=== PATIENT | female | born 1965 | race Caucasian/White ===

== ENCOUNTER 2019-11-01 19:52 | Inpatient (IN) | payer MEDICAID ==
[~2019-11-01] VITALS: Ht 165.1 cm; Wt 72.4 kg
[2019-11-01 21:18] LABS: Basophils # (auto) 0 uL; Basophils % (auto) 0.3 % (0.0-2.0); Eosinophils # (auto) 0.1 uL; Eosinophils % (auto) 0.7 % (0.0-7.0); Hematocrit 45.3 % (36.0-46.0); Hemoglobin 15.5 g/dL (12.2-16.2); Lymphocytes # (auto) 2.4 uL; Mean Corpuscular Hemoglobin 32.5 pg (28.0-32.0); Mean Corpuscular Hgb Conc. 34.2 g/dL (32.0-36.0); Monocytes # (auto) 0.8 uL; Monocytes % (auto) 6.7 % (0.0-12.0); Neutrophils # (auto) 8.6 uL; Neutrophils % (auto) 72.3 % (37.0-80.0); Nucleated Red Blood Cells % 0.1 %; Platelet Count (auto) 278 10^3/uL (140-450); Red Blood Cells 4.77 10^6/uL (4.0-5.20); Red Cell Distribution Width 12.7 % (11.8-14.3); White Blood Cell 11.9 10^3/uL (4.4-10.8)
[2019-11-01 21:23] LABS: Albumin 3.9 g/dL (3.4-5.0); Calcium 8.7 mg/dL (8.5-10.1); Magnesium 2.2 mg/dL (1.6-2.6); Potassium 3.9 mmol/L (3.5-5.1)
[2019-11-01 21:29] LABS: Bilirubin, Total 0.3 mg/dL (0.2-1.0); Total Protein 7.8 g/dL (6.4-8.2)
[2019-11-01] MEDS ORDERED: NITROGLYCERIN 0.4 MG SL TAB SL PRN (22:15)
[2019-11-01] MEDS ORDERED: HYDROcodone-ACET 5/325MG TAB PO PRN (22:15)
[2019-11-01] MEDS ORDERED: METOPROLOL TARTRATE 25 MG TAB PO ONE (22:15)
[2019-11-01] MEDS ORDERED: TEMAZEPAM 15 MG CAP PO PRN (22:15)
[2019-11-01] MEDS ORDERED: MORPHINE SULF INJ 2 MG/ML SYRINGE 1ML IV PRN (22:15)
[2019-11-01] MEDS ORDERED: ENOXAPARIN SOD 100 MG/1 ML SYRINGE SC SCH (22:15)
[2019-11-01] MEDS ORDERED: ONDANSETRON HCL 4 MG/2 ML VIAL IV PRN (22:15)
[2019-11-01] MEDS ORDERED: ATORVASTATIN 20 MG TAB PO ONE (22:15)
[2019-11-01 22:37] LABS: Urine Amorphous Crystal FEW /hpf (None Seen); Urine Bacteria NONE SEEN /hpf (None Seen); Urine Blood 1+ /uL (Negative); Urine Specific Gravity 1.024 (1.001-1.035); Urine WBC 4 /hpf (0 - 5)
[2019-11-01] MEDS: D5W/SOD CHLO 0.9% 1,000 ML IV SCH (23:12)
[2019-11-02] VITALS (8 sets, daily range): BP systolic 112–144; BP diastolic 67–106
[2019-11-02] MEDS ORDERED: ERGO1CAP6 PO (00:34)
--- NOTE | 2019-11-02 00:40 | NUR ---
Telemetry admit from ER KANDIBRYONKarli admitted to Telemetry unit after SBAR received. Patient oriented to Roberto Carlos august RN, unit, room 296, bed A, and unit policies regarding patient care and visiting hours. Patient now on continuous telemetry monitoring, tele box #78 and telemetry reading on arrival to unit is SR 77. Patient placed on bedside oxygen, weighed by bedscale and encouraged to call if they need something. All questions and concerns addressed, patient verbalized understanding.
[2019-11-02] MEDS ORDERED: NICOTINE 21MG/24 HR TOPICAL PATCH TD ONE (01:00)
[2019-11-02 01:10] LABS: Cholesterol 199 mg/dL (< 200)
[2019-11-02 01:13] LABS: HDL Cholesterol 49 mg/dL (40-59); LDL Cholesterol 122 mg/dL (< 100); Triglycerides 119 mg/dL (< 150)
--- NOTE | 2019-11-02 01:42 | NUR ---
Received a call from labs regarding critical Troponins at 0.598. Patient resting and in no distress. Paged hospitalist.
--- NOTE | 2019-11-02 02:43 | NUR ---
Received call from Hospitalist. Confirmed order for Cardiology consult. No other new orders.
[2019-11-02 06:35] LABS: BUN/Creatinine Ratio 18.8; Calcium 8.1 mg/dL (8.5-10.1); Potassium 4.1 mmol/L (3.5-5.1)
[2019-11-02 06:58] LABS: Basophils # (auto) 0 uL; Basophils % (auto) 0.3 % (0.0-2.0); Eosinophils # (auto) 0.1 uL; Eosinophils % (auto) 1.2 % (0.0-7.0); Hematocrit 42.5 % (36.0-46.0); Hemoglobin 14.6 g/dL (12.2-16.2); Lymphocytes % (auto) 45.1 % (10.0-50.0); Mean Corpuscular Hemoglobin 32.3 pg (28.0-32.0); Mean Corpuscular Hgb Conc. 34.2 g/dL (32.0-36.0); Mean Corpuscular Volume 94.4 fL (80.0-100.0); Monocytes # (auto) 0.6 uL; Neutrophils # (auto) 4.1 uL; Neutrophils % (auto) 46.4 % (37.0-80.0); Nucleated Red Blood Cells % 0.2 %; Platelet Count (auto) 257 10^3/uL (140-450); Red Cell Distribution Width 12.5 % (11.8-14.3); White Blood Cell 8.8 10^3/uL (4.4-10.8)
--- NOTE | 2019-11-02 08:20 | NUR ---
Opening Shift Note Assumed care of patient. She was sleeping but woke easily and is alert X 4. Patient is on room air with no S/S of distress/SOB or pain. Bed is in the lowest and locked position with side rails up x 2. Instructed on POC and to call for assist PRN, will continue to monitor for changes Q1hr and PRN.
[2019-11-02] MEDS: METOPROLOL TARTRATE 25 MG TAB PO SCH ×2 (10:00→22:00)
[2019-11-02] MEDS: NICOTINE 21MG/24 HR TOPICAL PATCH TD SCH ×2 (10:00→10:36)
[2019-11-02] MEDS: ENOXAPARIN SOD 80 MG/0.8ML SYRINGE SC SCH ×2 (10:00→21:59)
[2019-11-02] MEDS: ASPirin 81 mg TAB PO SCH (10:34)
[2019-11-02] MEDS: FAMOTIDINE 20 MG TAB PO SCH ×2 (10:34→21:59)
--- NOTE | 2019-11-02 10:35 | NUR ---
Called and spoke to Dr. Saha/Cardiology to inform him that pt has a cardiac consult, pt's troponin levels of 0.106, 0.598, 0.555, and to inform him that pt is NPO, as per doctor pt can eat no plan for any test or procedure for today, the plan if for pt to have LHC tomorrow.
[2019-11-02] MEDS: D5W/SOD CHLO 0.9% 1,000 ML IV SCH (11:35)
--- NOTE | 2019-11-02 14:35 | NUR ---
Dr. Cooper at bed side to see pt. doctor discussed plan of care with pt.
[2019-11-02] MEDS: ACETAMINOPHEN 325 MG TAB PO PRN (17:15)
--- NOTE | 2019-11-02 19:40 | NUR ---
RECEIVED PATIENT FROM DAY SHIFT RN. PATIENT JUST BACK TO FLOOR FROM SMOKE. NO S/S OF DISTRESS NOTED. DENIED PAIN FOR NOW. REINFORCED NPO AFTER MIDNIGHT FOR PROCEDURE TOMORROW. PATIENT VERBALIZED UNDERSTANDING. POC INSTRUCTED AND ENCOURAGED PATIENT TO CALL FOR HOST/HOSTESS RESTAURANT IF NEEDED. BED IN LOWEST POSITION WITH SIDE RAILS UP X 2. CALL DOLL WITHIN REACH. CONTINUE TO MONITOR FOR CHANGES Q1H AND PRN.
[2019-11-02] MEDS: ATORVASTATIN 20 MG TAB PO SCH (21:59)
[2019-11-02] MEDS ORDERED: ATORVASTATIN 20 MG TAB PO SCH (22:00)
--- NOTE | 2019-11-02 22:37 | NUR ---
PATIENT RESTING IN BED. NO S/S OF DISTRESS NOTED. DENIED PAIN FOR NOW. CONTINUE TO MONITOR.
--- NOTE | 2019-11-03 00:10 | NUR ---
REINFORCED NPO FROM NOW ON. PATIENT VERBALIZED UNDERSTANDING. FOOD AND WATER REMOVED FROM BEDSIDE. CONTINUE CARE.
--- NOTE | 2019-11-03 03:31 | NUR ---
PATIENT SLEEPING. NO S/S OF DISTRESS NOTED. CONTINUE CARE.
[2019-11-03 05:18] VITALS: BP 128/65
[2019-11-03 05:22] LABS: INR 1.03 (0.9-1.15); Partial Thromboplastin Time 32.1 sec (23.64-32.05)
[2019-11-03 05:48] VITALS: BP 148/82
--- NOTE | 2019-11-03 06:00 | NUR ---
PATIENT C/O CHEST PAIN @ 7/10 AT 0538AM. PAIN LOCALIZED AT LEFT CHEST. VITALS DONE, BP 175/91, HR 74, RR 21, O2 SAT 100% ON RA. EKG DONE, SHOWED SR [address] ELEVATION, CONSIDER INFERIOR INJURY. NITRO GIVEN ORDERED. 5 MINS LATER, REASSESS PATIENT, PAIN LEVEL DOWN TO 2/10, BP 148/82,, HR 73. HOSPITALIST TAIWO HART INFORMED AND SIGNED ON EKG STRIP. ORDERED TO CONTINUE TO MONITOR SINCE PATIENT IS SCHEDULED FOR [facility] TODAY WITH MD SANDERS. CONTINUE TO MONITOR.
[2019-11-03 08:00] VITALS: BP 132/84
[2019-11-03] MEDS ORDERED: IOHEXOL 350 MG/ML 100ML IJ ONE ×2 (09:23→10:09)
[2019-11-03] MEDS ORDERED: LIDOCAINE 2%HCL (LOCAL ANESTH.) INJ 20ML MDV ONE (09:24)
[2019-11-03] MEDS ORDERED: MIDAZOLAM HCL 1MG/1ML-2 ML VIAL ONE (09:47)
[2019-11-03] MEDS ORDERED: ANGIOMAX 250 MG VIAL IV ONE (09:47)
[2019-11-03] MEDS ORDERED: fentaNYL CITRATE 100 MCG/2 ML VL ONE (09:47)
[2019-11-03] MEDS ORDERED: SODIUM CHL 0.9% 50 ML ONE (09:47)
[2019-11-03] MEDS: NICOTINE 21MG/24 HR TOPICAL PATCH TD SCH (10:00)
[2019-11-03] MEDS: METOPROLOL TARTRATE 25 MG TAB PO SCH ×2 (10:00→21:57)
[2019-11-03] MEDS: ASPirin 81 mg TAB PO SCH (10:00)
[2019-11-03] MEDS: FAMOTIDINE 20 MG TAB PO SCH ×2 (10:00→21:57)
[2019-11-03] MEDS ORDERED: CLOPIDOGREL 300 MG TAB ONE (10:35)
[2019-11-03] MEDS ORDERED: ASPirin 325 MG TAB ONE (10:35)
[2019-11-03] MEDS ORDERED: CLOPIDOGREL BISULFATE 75 MG TAB PO ONE (11:00)
[2019-11-03 12:00] VITALS: BP 163/57
[2019-11-03] MEDS: SODIUM CHLORIDE 0.9% 1,000 ML IV SCH ×2 (13:20)
[2019-11-03] MEDS: ACETAMINOPHEN 325 MG TAB PO PRN (16:39)
[2019-11-03 17:00] VITALS: BP 159/82
--- NOTE | 2019-11-03 19:30 | NUR ---
Opening Shift Note Assumed care of patient, awake and alert. No S/S of distress/SOB or pain. Instructed on POC and to call for assist PRN. Bed in lowest locked position, call light within reach, side rails up x2. Will continue to monitor for changes Q1hr and PRN.
[2019-11-03] MEDS: ATORVASTATIN 20 MG TAB PO SCH (21:56)
[2019-11-03 22:00] VITALS: BP 134/79
[2019-11-04] MEDS: SODIUM CHLORIDE 0.9% 1,000 ML IV SCH (02:40)
[2019-11-04 05:00] VITALS: BP 120/63
--- NOTE | 2019-11-04 07:30 | NUR ---
Opening Shift Note Assumed care of patient, awake and alert. No S/S of distress/SOB or pain. For safety patients bed is locked, in the lowest position with 2 side rails up. Instructed on POC and to call for assist PRN, will continue to monitor for any changes in condition.
[2019-11-04 08:00] VITALS: BP 110/68
[2019-11-04] MEDS: ASPirin 81 mg TAB PO SCH (09:31)
[2019-11-04] MEDS: FAMOTIDINE 20 MG TAB PO SCH (09:32)
[2019-11-04] MEDS: METOPROLOL TARTRATE 25 MG TAB PO SCH (09:32)
[2019-11-04] MEDS: NICOTINE 21MG/24 HR TOPICAL PATCH TD SCH (09:34)
[2019-11-04] MEDS ORDERED: CLOPIDOGREL BISULFATE 75 MG TAB PO SCH (10:00)
[2019-11-04 12:00] VITALS: BP 108/58
[2019-11-04] MEDS ORDERED: LISINOPRIL 5 MG TAB PO ONE (14:00)
--- NOTE | 2019-11-04 15:52 | NUR ---
Discharge instructions given as ordered. Encourage to follow up with primary care provider Dr. Cooper as instructed. All questions and concerns addressed. Patient verbalized understanding. Medication reconciliation form completed and copy given to patient. IV removed with catheter intact, pressure dressing applied. Telemetry unit returned to ICU. Patient taken to vehicle via wheelchair with all personal belongings, accompanied by staff and Chris. No distress noted at time of departure.
== END 2019-11-04 15:52 | disposition home or self-care (01) | DRG 174 ==
LOC: EDBD 19:52 → ER 19:56 → TELE 19:57 → TELE-WESTW 23:26
PROVIDERS: ADMIT Nurse Practitioner; ATTEND Internal Medicine
PROC: 027135Z Dilation of Coronary Artery, Two Arteries with Two Drug-eluting Intraluminal Devices, Percutaneous Approach (ICD-10-PCS; principal; 2019-11-03)
PROC: 4A023N8 Measurement of Cardiac Sampling and Pressure, Bilateral, Percutaneous Approach (ICD-10-PCS; 2019-11-03)
PROC: 4A033BC Measurement of Arterial Pressure, Coronary, Percutaneous Approach (ICD-10-PCS; 2019-11-03)
DX: I21.4 Non-ST elevation (NSTEMI) myocardial infarction (principal); E78.5 Hyperlipidemia, unspecified; I10 Essential (primary) hypertension; R79.89 Other specified abnormal findings of blood chemistry; Z72.0 Tobacco use
CPT/HCPCS: 0523T; 92928; 92929; 93460; 96372; 99291; 36415; 71045; 71250; 80048; 80053; 80061; 81001; 83036; 83735; 83880; 84439; 84443; 84484; 85025; 85379; 85610; 85730; 93005; 93306; 93571; 99152; 99153; C1874; C1887; G0378; J2250

== ENCOUNTER → 2021-06-17 | Outpatient (CLI) | payer MEDICAID ==
[~2021-06-17] MED LIST: ERGO1CAP12 PO
== END | disposition home or self-care (01) ==
LOC: Rad HDHVI 14:59
PROVIDERS: ATTEND Internal Medicine
DX: I07.1 Rheumatic tricuspid insufficiency (principal); I25.10 Atherosclerotic heart disease of native coronary artery without angina pectoris; E78.5 Hyperlipidemia, unspecified
CPT/HCPCS: 93306

== ENCOUNTER → 2021-07-01 | Outpatient (CLI) | payer MEDICAID ==
[~2021-07-01] VITALS: Ht 167.6 cm; Wt 78.0 kg
== END | disposition home or self-care (01) ==
LOC: Rad HDHVI 13:59
PROVIDERS: ATTEND Internal Medicine
DX: I25.10 Atherosclerotic heart disease of native coronary artery without angina pectoris (principal); E78.5 Hyperlipidemia, unspecified; F17.209 Nicotine dependence, unspecified, with unspecified nicotine-induced disorders; F17.200 Nicotine dependence, unspecified, uncomplicated; J44.9 Chronic obstructive pulmonary disease, unspecified; I25.2 Old myocardial infarction; Z95.5 Presence of coronary angioplasty implant and graft; Z82.49 Family history of ischemic heart disease and other diseases of the circulatory system
CPT/HCPCS: 78452; 93017; 96374; A9500

== ENCOUNTER → 2023-09-01 | Outpatient (CLI) | payer MEDICAID | END | disposition home or self-care (01) | LOC: Rad HDHVI 15:04 | PROVIDERS: ATTEND Internal Medicine Cardiovascular Disease | DX: R00.2 Palpitations (principal); I10 Essential (primary) hypertension | CPT/HCPCS: 93306 ==

== ENCOUNTER → 2023-09-21 | Outpatient (CLI) | payer MEDICAID | END | disposition home or self-care (01) | LOC: Rad HDHVI 12:56 | PROVIDERS: ATTEND Internal Medicine Cardiovascular Disease | DX: I73.9 Peripheral vascular disease, unspecified (principal); I10 Essential (primary) hypertension | CPT/HCPCS: 93925 ==

== ENCOUNTER → 2023-09-23 | Outpatient (CLI) | payer MEDICAID | END | disposition home or self-care (01) | LOC: Rad HDHVI 10:05 | PROVIDERS: ATTEND Internal Medicine Cardiovascular Disease | DX: I25.10 Atherosclerotic heart disease of native coronary artery without angina pectoris (principal); R06.02 Shortness of breath; I25.2 Old myocardial infarction; I10 Essential (primary) hypertension; E11.9 Type 2 diabetes mellitus without complications; J43.9 Emphysema, unspecified; E78.5 Hyperlipidemia, unspecified; F17.209 Nicotine dependence, unspecified, with unspecified nicotine-induced disorders | CPT/HCPCS: 78452; 93017; 96374; A9500 ==

== ENCOUNTER → 2024-07-18 | Outpatient (CLI) | payer MEDICAID | END | disposition home or self-care (01) | LOC: Rad HDHVI 13:00 | PROVIDERS: ATTEND Internal Medicine Cardiovascular Disease | DX: R06.02 Shortness of breath (principal) | CPT/HCPCS: 71046 ==

== ENCOUNTER → 2024-07-20 | Outpatient (CLI) | payer MEDICAID | END | disposition home or self-care (01) | LOC: Rad HDHVI 13:56 | PROVIDERS: ATTEND Internal Medicine Cardiovascular Disease | DX: I10 Essential (primary) hypertension (principal); R00.2 Palpitations | CPT/HCPCS: 93306 ==

== ENCOUNTER 2025-06-21 10:09 | Outpatient (CLI) | payer MEDICAID ==
[2025-06-21 10:20] VITALS: BP 140/81; PULSE 65; RESP 16; O2SAT 99
[2025-06-21 10:50] VITALS: BP 141/75; PULSE 62; RESP 16; O2SAT 99
--- NOTE | 2025-06-21 11:56 | DVH ---
CHEST RADIOGRAPH Indication: PRE OP CARDIAC CLEARANCE Technique: Frontal and lateral view of the chest was obtained Comparison: XY CHEST TWO VIEWS ROUTINE on DOS: 07/18/24, CHEST WITHOUT CONTRAST on DOS: 11/02/19, CHES T PORTABLE on DOS: 11/01/19 FINDINGS: Lines and Tubes: None Lungs: Clear Pleura: No effusion. No pneumothorax. Cardiomediastinal contours: Unremarkable. Atherosclerotic vascular calcifications. Bones: Unremarkable IMPRESSION: 1. No evidence of acute disease.
[2025-06-21] MEDS ORDERED: ZOLP10TA PO (11:59)
[2025-06-21] MEDS ORDERED: MAGN500T17 PO (11:59)
[2025-06-21] MEDS ORDERED: ATOR-47 PO (11:59)
[2025-06-21] MEDS ORDERED: CARV6.2551 PO (11:59)
[2025-06-21] MEDS ORDERED: CLOP75TA70 PO (11:59)
[2025-06-21] MEDS ORDERED: ASPI-543 PO (11:59)
[2025-06-21] MEDS ORDERED: FLUT1AER3 IN (11:59)
[2025-06-22] MEDS ORDERED: IOHEXOL 350 MG/ML 100ML IJ ONE (09:58)
== END 2025-06-21 17:00 | disposition home or self-care (01) ==
LOC: Rad HDHVI 10:09
PROVIDERS: ATTEND Internal Medicine Cardiovascular Disease
DX: Z01.818 Encounter for other preprocedural examination (principal); I70.8 Atherosclerosis of other arteries; R00.2 Palpitations
CPT/HCPCS: 71046; 93005; G0463

== ENCOUNTER 2025-06-22 07:16 | Day surgery (SDC) | payer MEDICAID ==
[2025-06-21 12:44] LABS: Hematocrit 45.4 % (36.0-46.0); Hemoglobin 15.6 g/dL (12.2-16.2); Mean Corpuscular Hemoglobin 32.3 pg (28.0-32.0); Mean Corpuscular Volume 94.0 fL (80.0-100.0); Nucleated Red Blood Cells % 0.1 %
[2025-06-21 13:06] LABS: INR 1.03 (0.9-1.15); Partial Thromboplastin Time 25.5 SEC (24.5-34.5); Prothrombin Time 10.9 sec (9.3-11.8)
[2025-06-21 13:19] LABS: Potassium 4.0 mmol/L (3.5-5.1); Sodium 142 mmol/L (136-145)
[2025-06-21 13:20] LABS: Anion Gap 8 (5-15); Carbon Dioxide 26 mmol/L (20-31)
[2025-06-21 13:21] LABS: Calcium 9.1 mg/dL (8.7-10.4)
[2025-06-21 13:25] LABS: BUN/Creatinine Ratio 19.4 (10.0-20.0); Blood Urea Nitrogen 14 mg/dL (9-23); Glucose 99 mg/dL (74-106)
[2025-06-21 13:32] LABS: Chloride 108 mmol/L (98-107)
[2025-06-22] VITALS (10 sets, daily range): BP systolic 114–180; BP diastolic 75–88; PULSE 58–72; RESP 14–20; O2SAT 97–100
[~2025-06-22] VITALS: Ht 167.6 cm; Wt 77.6 kg
[~2025-06-22 07:16] MED LIST changes: +ASPI-543 PO; +ATOR-47 PO; +CARV6.2551 PO; +CLOP75TA70 PO; -ERGO1CAP12 PO; +FLUT1AER3 IN; +MAGN500T17 PO; +ZOLP10TA PO
[2025-06-22] MEDS: LIDOCAINE 2%HCL (LOCAL ANESTH.) INJ 20ML MDV ONE (10:11)
[2025-06-22] MEDS: SODIUM CHL 0.9% 0 ML ONE (10:11)
[2025-06-22] MEDS: MIDAZOLAM HCL 2MG/2ML 2ml VIAL (1mg/ml) ONE (10:11)
[2025-06-22] MEDS: fentaNYL CITRATE 100 MCG/2 ML VL ONE (10:11)
[2025-06-22] MEDS: ANGIOMAX 250 MG VIAL IV ONE (10:11)
--- NOTE | 2025-06-22 11:55 | DVHHP ---
ADMIT DATE: 06/22/2025 HISTORY OF PRESENT ILLNESS: A 60-year-old with history of hypertension, history of myocardial infarction in 01/04/2019, status post angioplasty with stent placement in 01/04/2019 to the right coronary artery. Further medical history is also significant for hyperlipidemia, family history of coronary artery disease in mother with myocardial infraction, history of COPD, history of tobacco use, discontinued smoking approximately a year and a half ago. She denies any diabetes, denies any renal failure, denies any heart failure. Ejection fraction was normal. Her current medications include Plavix, aspirin, atorvastatin and carvedilol. Because of ongoing chest pain, even though echocardiogram shows preserved left ventricular ejection fraction with no segmental wall motion abnormality and stress test showed no perfusion abnormality, the patient is continuing to experience chest pressure, chest pain. It appears as though it is either reocclusion of the right coronary artery or further progression of coronary artery disease in the other branches or it could be small vessel disease. It is most consistent with small vessel disease at this time from the description and the symptoms that the patient is exhibiting. If that is the case, then ____ therapy as well as EECP should be considered. REVIEW OF SYSTEMS: She denies any fever, chills, melena, hematochezia, hematemesis or hemoptysis. She denies any history of rheumatologic disorder, mixed connective tissue. She denies any inflammatory bowel disease or irritable bowel syndrome. She denies any history of CVA or TIA or seizure disorder. She denies any musculoskeletal disorder other than osteoarthritis. PHYSICAL EXAMINATION: VITAL SIGNS: Blood pressure is 140/72, pulse 60 and regular, O2 saturation 98% on room air. HEENT: Pupils are reactive. Funduscopic exam shows no AV nicking, no exudation, no papilledema. Sclerae anicteric. Extraocular muscles are intact. Oral mucosa moist. Posterior pharynx without any exudates. NECK: Carotid pulses are 2+ and symmetrical. Normal upstroke and contour. No JVD appreciated. No cervical adenopathy. No supraclavicular adenopathy. PULMONARY: Clear to auscultation. Tympanic to percussion. No rhonchi. No wheezes. No egophony. CARDIOVASCULAR: Regular rate without S3, without S4. PMI is nondisplaced. There is a soft ____ systolic murmur along the left sternal border. ABDOMEN: Soft, nontender. Normal bowel sounds. EXTREMITIES: Distal pulses are 2+ and symmetrical bilaterally. NEUROLOGIC: The patient is intact. ASSESSMENT AND PLAN: Thus, the patient with ongoing chest pain despite negative stress test, but previous history of myocardial infarction, previous history of angioplasty, stent placement since 6 years ago; however, the patient is now to undergo coronary angiography to define coronary anatomy. Further recommendations after the angiogram. Risks and benefits were explained to the patient. Yifan Trejo MD SA/KARELY/LINO TID: [id number] RECEIPT: [id number]
--- NOTE | 2025-06-22 12:49 | DVHOP ---
DATE OF SURGERY: 06/22/2025 PROCEDURE PERFORMED: * Selective left and right coronary angiography. * Ventriculogram. * Right iliac angiography with conscious sedation. DESCRIPTION OF PROCEDURE: The patient was prepped and draped in sterile condition. A 1% Xylocaine was used to anesthetize the right groin. Using Cook needle, the right femoral artery was engaged using Seldinger technique. A 6-Afghan sheath was placed in the right femoral artery. Using 6-Afghan JL4 catheter and a 6-Afghan JR4 catheter, selective left and right coronary angiography was performed. Using a 6-Afghan Pigtail catheter, ventriculogram was done. Total contrast used 40 mL of Optiray. Total fluoroscopy time was 1 minute. RESULTS: * Left main without any flow restrictive lesion. * Left anterior descending artery without any flow restrictive lesion. * Right coronary artery previous site of stent placement was patent with no residual stenosis. Small vessel disease; however, rapid tapering of the right marginal branch and the posterior descending artery. * Left ventricular function was preserved with an estimated EF of 55% to 60% with an LVEDP of 12 mmHg with left ventricular systolic pressure of 168. No gradient across the aortic valve. CONCLUSION: The patient has small vessel disease. Previous site of stent placement of the right coronary artery was patent. The patient's left anterior descending artery, left main and circumflex artery showed mild intermittent irregularity without any flow restrictive lesion. EF was preserved at about 55% to 60%. LVEDP of 12 mmHg. At this time, continue aggressive risk modification. No catheter-based surgical intervention is warranted at this time. Yifan Trejo MD SA/TAWANNA/GARRETT TID: [id number] RECEIPT: [id number]
--- NOTE | 2025-06-23 07:29 | DVHDS ---
DATE OF DISCHARGE: 06/22/2025 DISCHARGE DIAGNOSES: * Accelerated hypertension. * Diastolic dysfunction. * Small vessel disease. Previous site of stent placement was patent. Left main, LAD, circ, and previous stented RCA, all are within normal limits with mild intimal irregularity. The patient's systolic pressure was elevated but diastolic pressure was within normal limits. The LVEDP of 12 mmHg. Aggressive risk modification. The patient may benefit from EECP if continues to have chest pain and also may benefit from vasodilate therapy with Verquvo. We will continue to follow. The patient is stable at the time. DISCHARGE DISPOSITION: Home. ACTIVITY: As instructed. DIET: 2 grams sodium diet. Yifan Trejo MD SA/EKT/LINO TID: [id number] RECEIPT: [id number]
== END 2025-06-22 14:07 | disposition home or self-care (01) ==
LOC: CATH 07:16
PROVIDERS: ATTEND Internal Medicine Cardiovascular Disease
DX: R94.39 Abnormal result of other cardiovascular function study (principal); I25.10 Atherosclerotic heart disease of native coronary artery without angina pectoris; I10 Essential (primary) hypertension; I25.2 Old myocardial infarction; E78.5 Hyperlipidemia, unspecified; F11.91 Opioid use, unspecified, in remission; F17.210 Nicotine dependence, cigarettes, uncomplicated; Z79.82 Long term (current) use of aspirin; Z79.899 Other long term (current) drug therapy; Z95.5 Presence of coronary angioplasty implant and graft; Z98.51 Tubal ligation status; Z98.891 History of uterine scar from previous surgery; Z82.49 Family history of ischemic heart disease and other diseases of the circulatory system; Z82.5 Family history of asthma and other chronic lower respiratory diseases
CPT/HCPCS: 36415; 80048; 85025; 85610; 85730; 93458; C1760; C1894; J2250; J3010; J7030; 99152